=== PATIENT | female | born 1950 | race Caucasian/White ===

== ENCOUNTER → 2022-03-19 10:30 | Outpatient (CLI) | payer MEDICARE, OTHER, SELFPAY ==
[2022-03-19 11:16] LABS: COVID19 -Nasal RAPID Negative (Negative)
== END ==
PROVIDERS: Visit Provider Surgery
DX: Z20.822 Contact with and (suspected) exposure to COVID-19 (principal); Z01.812 Encounter for preprocedural laboratory examination
CPT/HCPCS: 87635; C9803

== ENCOUNTER 2022-03-22 08:13 | Day surgery (SDC) | payer MEDICARE, OTHER, SELFPAY ==
--- NOTE | 2022-03-22 | PATH_ITS ---
[facility] Accession Number: [id number] . 01 Material submitted: . colon - DESCENDING COLON . 01 Diagnosis: Descending Colon Polyp, Biopsy: Tubular adenoma. MRV 03/25/2022 1357 Local . 01 Electronically signed: . Michelle Joe MD, Pathologist NPI- [id number] . 01 Gross description: . The specimen is received in formalin, labeled with the patient's name and descending colon, and consists of multiple zuñiga to brown soft tissue fragments ranging from 0.1 cm to 0.4 cm in greatest dimension. Submitted entirely in cassette A1. ([id number]) /FRR 03/25/2022 0324 Local . 01 Pathologist provided ICD-10: D12.4 . 01 CPT . 042967 Specimen Comment: A courtesy copy of this report has been sent to [phone] Performed at: 01 [facility] [address] [place] [address] [id number] MD Rell Henley MD Phone: [phone]
[2022-03-22 08:41] VITALS: BP 146/89; PULSE 96; RESP 16; TEMP 36.8; O2SAT 98; BMI 37.4
[2022-03-22] MEDS: SODIUM CHLORIDE 0.9% 1,000 ML 84 ML IV (09:05)
--- NOTE | 2022-03-22 09:08 | PM.HP.1 ---
History of Present Illness History of Present Illness Date Patient Seen: 03/22/22 Time Patient Seen: 09:08 Chief complaint: Colonoscopy Narrative: Family history of colon cancer in her dad. Recent positive Cologuard. Patient History Family & Social History Social History: household members spouse Tobacco & Substance use: Smoking Status Never smoker alcohol intake frequency a few times a month Substance Use Type does not use Meds Home Medications and Allergies Home Medications Medication Instructions Recorded Confirmed Type aspirin 81 mg tablet,delayed 81 mg 03/22/22 History release clobetasol 0.05 % topical ointment 1 topical PRN psoriasis 03/22/22 History guselkumab 100 mg/mL subcutaneous 0 mg SUBCUT 03/22/22 History auto-injector (Tremfya) hydrochlorothiazide 12.5 mg tablet 12.5 mg 03/22/22 History lisinopril 20 mg tablet 20 mg 03/22/22 History meloxicam 15 mg tablet 15 mg 03/22/22 History simvastatin 10 mg tablet 10 mg 03/22/22 History Allergies Allergy/AdvReac Type Severity Reaction Status Date / Time No Known Drug Allergies Allergy Verified 03/22/22 08:37 Review of Systems Review of Systems ROS: Yes All systems reviewed with the patient and are negative except as otherwise documented Exam Vital Signs (past 8 hours): - 03/22/22 08:41 Temperature 98.3 F Pulse Rate 96 H Respiratory Rate 16 Blood Pressure 146/89 H Pulse Oximetry 98 Oxygen Delivery Method Room Air Oxygen Delivery Method Room Air Const General: cooperative HENMT Head: normal to inspection Eyes General: appearance normal, both eyes and all related structures Neck Neck: normal visual inspection Chest Chest: normal inspection of the chest Resp Effort & Inspection: normal respiratory effort Cardio Rate: regular rate GI Inspection: normal to inspection Skin General: no rashes or lesions noted Neuro General: patient alert and patient awake Extrem General: normal to inspection and no pedal edema Psych Appearance: grossly normal Assessment & Plan Assessment & Plan narrative: 71-year-old female with a family history of colon cancer and a personal history of a positive Cologuard. Colonoscopy is pursued today. Time Spent With Patient Critical Care time: I spent a total of [] minutes of critical care time on this patient's care today; this time is exclusive of procedural time.
--- NOTE | 2022-03-22 09:10 | PM.PREOP ---
Pre-operative Note COVID-19 COVID-19 status: Negative Result date/Date tested (Pos, Neg/Pending): 03/19/22 Criteria for continued procedure: Possibility delay results in more complex future surgery or treatment Interval Note History & Physical reviewed/Exam performed by Physician: Yes Changes to H&P: No ASA Class (for procedural sedation): II
--- NOTE | 2022-03-22 10:15 | P.OP.COLON_ITS ---
Operative Date/Time/Diagnoses Date of procedure: 03/22/22 Time of procedure: 10:15 Pre-op diagnosis: Family history of colon cancer. Positive Cologuard. Post-op diagnosis: same Procedure & Clinicians Study performed: Colonoscopy with hot snare polypectomy Same procedure as scheduled: Yes Indications: Family history of colon cancer. Positive Cologuard. Surgeon: Gino Avendaño Procedure Notes SCOAP/Timeout: Done Procedure in detail: After the risks and benefits were explained, written and verbal informed consent was obtained. The patient was brought into the procedure room and placed into the left lateral decubitus position. Please see nurse hardwood floor sander notes for sedation details. Digital rectal examination was accomplished. The scope was introduced into the patient and advanced under direct visualization to the cecum as identified by the appendiceal orifice and ileocecal valve. The scope was slowly withdrawn to carefully examine the mucosa for any defects or lesions. Comprehensive imaging was accomplished throughout the rectum including the dentate line. The colon was decompressed, the scope was then removed from the patient who tolerated the procedure well. Adult colonoscope Bowel prep adequate Scope withdrawal time: 12 minutes Sedation minutes: 21 Complications: none Impression: In the proximal descending colon there was a sessile 6 mm polyp removed with hot snare. No additional pathology was appreciated throughout. The terminal ileum was normal in appearance. Grade 2 internal hemorrhoids were noted. Endoscopic diagnosis 1. Colon polyp 2. Grade 2 hemorrhoids Post-procedure Plan for aftercare: 1. Await histopathology. 2. Repeat colonoscopy 5 years. Disposition: PACU
[2022-03-22 10:18] VITALS: BP 119/57; PULSE 96; RESP 12; TEMP 36.6
[2022-03-22 10:23] VITALS: BP 124/77; PULSE 75; RESP 13; O2SAT 97
[2022-03-22 10:29] VITALS: BP 134/75; PULSE 75; RESP 23; O2SAT 98
[2022-03-22 10:30] VITALS: BP 130/72; PULSE 81; RESP 13; TEMP 36.7; O2SAT 99
[2022-03-22 10:47] VITALS: BP 133/79; PULSE 77; RESP 16; TEMP 35.9; O2SAT 99
== END 2022-03-22 10:55 | disposition home or self-care (01) ==
PROVIDERS: PCP Family Medicine; Referring Provider Internal Medicine Gastroenterology; Visit Provider Internal Medicine Gastroenterology
PROC: 0DJD8ZZ Inspection of Lower Intestinal Tract, Via Natural or Artificial Opening Endoscopic (ICD-10-PCS; CPT 45378; principal; 2022-03-22 09:30)
DX: R19.5 Other fecal abnormalities (principal); Z80.0 Family history of malignant neoplasm of digestive organs; K64.1 Second degree hemorrhoids; D12.4 Benign neoplasm of descending colon
CPT/HCPCS: 45385; J2405; J2704

== ENCOUNTER → 2023-05-30 06:33 | Outpatient (CLI) | payer MEDICARE, OTHER, SELFPAY ==
--- NOTE | 2023-05-30 06:34 | DI.ECHO.S_ITS ---
[facility] +---------+ : : [address] : : : : [id number] : : : : Phone: [phone]+ Echocardiogram Report + + :Name: DAMIÁN ASHER Study Date: 05/30/2023 Height: 65 in : :[facility] ReadingLocation: Weight: 225 lb : : Gender: Female BSA: 2.1 m2 : :: 1950 Age: 73 yrs BP: 173/97 mmHg: :Reason For Study: edema, and chest heaviness : : Performed By: Camille Corona : :Referring: ELENA MANUEL M : + + Interpretation Summary 1) Normal left ventricular thickness, size, wall motion, and systolic function (EF 55-60%). 2) Normal right ventricular size and function. 3) There is mild to moderate aortic stenosis (valve area 1.3cm2, mean gradient 17mmHg, severity ratio 0.45). 4) No prior Echo available for comparison. Procedure: A two-dimensional transthoracic echocardiogram with color flow and Doppler was performed. The study quality was technically adequate. There is no prior echocardiogram noted for this patient. The patient was in normal sinus rhythm during the exam. The heart rate ranged between 60-74 bpm during the study. Left Ventricle: Proximal septal thickening is noted. The estimated left ventricular end diastolic volume is 47 ml. The left ventricle is normal in size and wall thickness. There is no thrombus. There is no ventricular septal defect visualized. The ejection fraction is estimated to be 55-60%. There are no focal wall motion abnormalities. Diastolic parameters suggest a pseudonormalization pattern, consistent with probable elevated filling pressures. Right Ventricle: The right ventricle is normal in size and function. Atria: The left atrium is moderately dilated. The right atrium is normal in size. There is no Doppler evidence for an interatrial shunt. Mitral Valve: There is mild mitral annular calcification. The mitral valve leaflets appear mildly thickened, but open well. The mitral valve leaflets are mildly calcified. There is no mitral valve stenosis. There is trace mitral regurgitation. Aortic Valve: The aortic valve is mildly calcified. There is mild to moderate aortic stenosis. The peak aortic velocity is 2.86 m/sec. The aortic valve mean gradient is 17 mmHg. No aortic regurgitation is present. Tricuspid Valve: The tricuspid valve leaflets are thin and pliable. There is a trace or physiologic amount of tricuspid regurgitation. The right ventricular systolic pressure is estimated to be at least 19 mmHg based on an estimated right atrial pressure of 3 mm Hg. Pulmonic Valve: The pulmonic valve is not well seen, but is grossly normal. There is no pulmonic valvular regurgitation. Great Vessels: The aortic root is normal size. The ascending aorta could not be visualized. The aortic arch could not be visualized. The IVC is of normal diameter and collapses greater than 50% with a sniff. This suggests a low right atrial pressure of 3 mm Hg. Pericardium/ Pleura There is no pericardial effusion. There is an anterior echo-free space consistent with a fat pad. There is no pleural effusion. MMode/2D Measurements & Calculations LVIDd: 4.5 cm LVOT diam: 1.9 cm LVIDs: 3.0 cm Ao root diam: 2.9 cm FS: 31.9 % IVSd: 1.1 cm LVPWd: 0.97 cm LV kaur. diameter/BSA (cm/m^2): 2.1 LV sys. diameter/BSA (cm/m^2): 1.5 LA A2 area: 26.7 cm2 RA long axis: 5.3 cm LA A4 area: 16.0 cm2 RA area: 13.8 cm2 LA length (vol): 4.9 cm RA vol: 30.3 ml LA vol: 73.9 ml RA : 14.6 ml/m2 LA vol index: 35.5 ml/m2 IVC diam: 1.2 cm RVD1 (basal): 2.8 cm TAPSE: 2.2 cm Doppler Measurements & Calculations Ao V2 max: 285.9 cm/sec LVOT Max Jose Miguel: 129.9 cm/sec Ao V2 mean: 195.4 cm/sec LV V1 max P.8 mmHg Ao max P.7 mmHg LV V1 VTI: 28.5 cm Ao mean P.0 mmHg ASHLEY(I,D): 1.3 cm2 Ao V2 VTI: 63.9 cm ASHLEY(V,D): 1.3 cm2 sev ratio: 0.45 ASHLEY indexed to BSA (cm^2/m^2): 0.63 MV E max jose miguel: 119.9 cm/sec TR max jose miguel: 205.4 cm/sec MV A max jose miguel: 155.4 cm/sec TR max P.9 mmHg MV E/A: 0.77 PA V2 max: 100.3 cm/sec Med Peak E' Jose Miguel: 4.9 cm/sec PA V2 mean: 71.4 cm/sec E/E' med: 24.7 PA mean P.3 mmHg Lat Peak E' Jose Miguel: 6.1 cm/sec PA pr(Accel): 5.4 mmHg E/E' lat: 19.7 E/e' average: 22.2 MV dec time: 0.18 sec SV(LVOT): 83.2 ml Reading Physician:02:52 PM
== END ==
PROVIDERS: PCP Family Medicine; Referring Provider Family Medicine; Visit Provider Family Medicine
DX: I34.81 Nonrheumatic mitral (valve) annulus calcification (principal); I35.0 Nonrheumatic aortic (valve) stenosis; R06.00 Dyspnea, unspecified
CPT/HCPCS: 93306

== ENCOUNTER → 2023-06-22 08:42 | Outpatient (CLI) | payer MEDICARE, OTHER, SELFPAY ==
--- NOTE | 2023-06-22 08:44 | DI.NM.S_ITS ---
PROCEDURE: NM IVONE PERF SPECT R&S PHARM Rest and pharmacological stress myocardial perfusion SPECT with gated imaging and ejection fraction RADIOPHARMACEUTICAL: 25.7 mCi Tc-99m tetrafosmin IV at rest and 25 mCi Tc-99m tetrafosmin IV at peak effect of pharmacological stress. [id number] was performed. INDICATIONS: Dyspnea, unspecified TECHNIQUE: Radiopharmaceutical was injected at peak stress test, and also at rest. SPECT images were obtained. SPECT myocardial perfusion images were displayed in short axis, horizontal long axis, and vertical long axis views. Gated images were reviewed using Jammin Java software. COMPARISON: None. CARDIAC STRESS: A pharmacologic stress test was performed under the supervision of an attending staff, using an infusion of lexiscan 0.4mg IV X1. Hemodynamic data: There is normal blood pressure and heart rate response to pharmacologic stress. Symptoms: The patient denied anginal chest pain. Aminophylline: none EKG: No diagnostic changes of ischemia; no ectopy. FINDINGS: Raw data: There is good myocardial uptake of radiotracer. No significant motion artifacts. Left ventricle function: Gated images demonstrate normal left ventricular wall thickening. No segmental wall motion abnormalities. No transient ischemic dilation; TID is 0.84 (normal less than 1.3). Left ventricle resting end diastolic volume is 85mL. Left ventricle stress ejection fraction is 82%; normal range is above 45%. Myocardial perfusion: There is normal distribution of activity in the right and left ventricular myocardium. No fixed or reversible perfusion defects based on stress prone images. IMPRESSION: Low risk, normal pharm nuclear stress test with normal wall motion and normal systolic function (EF post stress 82%). Dictated by: Khurram Crystal MD on 06/24/2023 at 16:35 Approved by: Khurram Crystal MD on 06/24/2023 at 16:37
== END ==
LOC: NUCM 08:43
PROVIDERS: PCP Family Medicine; Referring Provider Internal Medicine Cardiovascular Disease; Visit Provider Internal Medicine Cardiovascular Disease
DX: R06.00 Dyspnea, unspecified (principal); R06.02 Shortness of breath; I10 Essential (primary) hypertension; R06.09 Other forms of dyspnea; I51.89 Other ill-defined heart diseases
CPT/HCPCS: 78452; 93017; A9502; J2785

== ENCOUNTER 2024-02-28 17:02 | Emergency (ER) | payer MEDICARE, OTHER, SELFPAY ==
[2024-02-28] VITALS (7 sets, daily range): BP systolic 166–237; BP diastolic 74–106; PULSE 91–106; RESP 16–26; TEMP 36.6–36.7; O2SAT 96–97; BMI 38.4
--- NOTE | 2024-02-28 17:22 | DI.RAD.S_ITS ---
PROCEDURE: XR CHEST 1V INDICATIONS: chest pain TECHNIQUE: One view of the chest was acquired. COMPARISON: None available at the time of this dictation. FINDINGS: Surgical changes and devices: None. Lungs and pleura: Low lung volumes are noted. This causes a crowded appearance to the lung markings and limits evaluation. Mild generalized interstitial prominence can be seen. Mediastinum: Mediastinal contours appear normal. Heart size is at the upper limits of normal. Bones and chest wall: No suspicious bony lesions. Mild dextroconvex scoliotic curvature is seen. Age-appropriate bony degenerative changes are seen. Overlying soft tissues appear unremarkable. IMPRESSION: Low lung volumes with mild interstitial prominence. Differential diagnosis includes artifact versus mild pulmonary edema. The heart size is at the upper limits of normal. If clinically appropriate, a short-term followup chest series (with PA and lateral views) performed in deep inspiration is suggested for further evaluation. Dictated by: Law Zee M.D. on 02/28/2024 at 16:59 Approved by: Law Zee M.D. on 02/28/2024 at 16:59
[2024-02-28 17:33] LABS: Add Manual Diff / Slide Review NO; Basophils Absolute Auto 100 /uL (0-100); Basophils Percent Auto 1.5 % (0-2); Eosinophils Absolute Auto 100 /uL (0-450); Eosinophils Percent Auto 1.4 % (2-4); Hematocrit 36.6 % (36-46); Lymphocytes Absolute Auto 1200 /uL (1100-4500); Lymphocytes Percent Auto 14.2 % (25-40); Mean Corpuscular HGB Conc 32.9 % (30-36); Mean Corpuscular Volume 81.9 fL (80-100); Monocytes Absolute Auto 500 /uL (0-900); Monocytes Percent Auto 5.7 % (3-14); Neutrophils Absolute Auto 6500 /uL (1500-7000); Neutrophils Percent Auto 77.2 % (50-75); Platelet Count 261 X10^3/uL (150-400); Red Blood Cell Count 4.47 X10^6/uL (4.0-5.2); Red Cell Distribution Width 16.9 % (11.6-14.8); White Blood Cell Count 8.4 X10^3/uL (4.5-11.0)
--- NOTE | 2024-02-28 17:38 | EKG_ITS ---
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
[2024-02-28 17:40] LABS: Prothrombin Time 11.2 SECONDS (9.4-12.5)
[2024-02-28 17:42] LABS: PTT Partial Thromboplastin Tim 30 SECONDS (25.1-36.5)
[2024-02-28 17:44] LABS: Alanine Aminotransferase 24 IU/L (<35); Albumin 4.3 g/dL (3.5-5.0); Albumin Globulin Ratio 1.3 (1.0-2.8); Alkaline Phosphatase 115 U/L (38-126); Aspartate Aminotransferase 23 IU/L (14-36); BUN Creatinine Ratio 22.9 (6-22); Bilirubin Total 0.5 mg/dL (0.2-1.3); Blood Urea Nitrogen 19 mg/dL (7-17); Calcium 9.1 mg/dL (8.4-10.2); Carbon Dioxide 24 mmol/L (22-32); Chloride 105 mmol/L (98-107); Creatine Kinase 42 U/L (30-135); Estimated Glomerular Filt Rate > 60 mL/min (>60); Globulin 3.2 g/dL (1.7-4.1); Glucose 150 mg/dL (80-110); HEMOLYSIS < 15 (0-50); Lipase 67 U/L (23-300); Magnesium 1.9 mg/dL (1.6-2.3); Potassium 3.7 mmol/L (3.4-5.1); Sodium 138 mmol/L (137-145); Total Protein 7.5 g/dL (6.3-8.2)
[2024-02-28] MEDS: ASPIRIN 81 MG CHEW TAB 324 MG PO (17:56)
[2024-02-28 17:57] LABS: NT-proBNP (BNP-Adult 18+) 400 pg/mL (<125); Troponin I < 0.012 ng/mL (0.01-0.034)
[2024-02-28 20:17] LABS: Troponin I < 0.012 ng/mL (0.01-0.034)
--- NOTE | 2024-02-28 21:42 | ED_ITS ---
HPI - General Adult General Chief complaint: Hypertension Stated complaint: Dizzy, High BP Time Seen by Provider: 02/28/24 21:17 Source: patient, RN notes reviewed and old records reviewed Mode of arrival: Wheelchair Limitations: no limitations History of Present Illness HPI narrative: 73-year-old female with a history of hypertension, dyslipidemia, psoriasis presents with complaint of hypertension, dizziness status post knee replacement weeks ago. Patient notes blood pressure has been elevated and had attempted increasing lisinopril and Lasix but without improvement of symptoms. Patient states she has been checking her blood pressure recently because she felt dizzy. She denies chest pain or shortness of breath, no syncope, no nausea or vomiting no other GI or urinary symptoms. No swelling in extremities. Her physician had her adjusting her medications and had her decrease her Lasix to half dose for about a week and then returned to normal this Tuesday. She has been taking her lisinopril regularly until Tuesday when she was told to take 40 mg instead of 20, patient took an additional 40 mg today has continued with her Lasix at its full dose. She has been checking her blood pressure multiple times appears to range between 150s and 160s but has had some elevated diastolic pressures. Home medications include aspirin 81 mg daily, lisinopril 20 mg daily, Lasix 10 mg, simvastatin and meloxicam. She has had prior knee replacement 10 weeks ago, no history of cardiac stents or interventions. No known drug allergies. No tobacco, alcohol or recreational drugs. She was in contact with her primary care physician reviewed her blood pressures and was told to come to the ED for evaluation. Related Data Home Medications Medication Instructions Recorded Confirmed aspirin 81 mg tablet,delayed 81 mg 03/22/22 release clobetasol 0.05 % topical ointment 1 topical PRN psoriasis 03/22/22 guselkumab 100 mg/mL subcutaneous 0 mg SUBCUT 03/22/22 auto-injector (Tremfya) hydrochlorothiazide 12.5 mg tablet 12.5 mg 03/22/22 lisinopril 20 mg tablet 20 mg 03/22/22 meloxicam 15 mg tablet 15 mg 03/22/22 simvastatin 10 mg tablet 10 mg 03/22/22 Allergies Allergy/AdvReac Type Severity Reaction Status Date / Time No Known Drug Allergies Allergy Verified 02/28/24 17:21 Review of Systems Review of Systems ROS Unobtainable: All systems reviewed & are unremarkable except as noted in HPI and below Patient History Social History household members: spouse Smoking Status: Never smoker Smoking Status: Never smoker alcohol intake frequency: a few times a month Substance Use Type: does not use Exam Narrative Exam Narrative: GENERAL: Alert and oriented x three, mild distress HEENT: Head normocephalic, atraumatic, EOMI, pupils reactive, face symmetric, moist mucous membranes NECK: Supple, full range of motion CARDIOVASCULAR: Regular rate and rhythm without murmurs, rubs or gallops. No JVD, no edema bilateral lower extremities. RESPIRATORY: Breath sounds equal bilaterally, no wheezes rales or rhonchi. No tachypnea or accessory muscle use ABDOMEN: Soft, nontender. Normoactive bowel sounds all 4 quadrants. No guarding or rebound, rigidity, no mass : No CVA tenderness EXTREMITIES: Normal range of motion, no clubbing or edema. Neurovascularly intact NEUROLOGICAL: Cranial nerves II through XII grossly intact. Moving all extremities SKIN: Warm, dry, no petechiae, no rashes or lesions. Initial Vital Signs Initial Vital Signs: Vital Signs Temperature 98.1 F 02/28/24 17:17 Pulse Rate 106 H 02/28/24 17:17 Respiratory Rate 16 02/28/24 17:17 Blood Pressure 237/106 H 02/28/24 17:17 Pulse Oximetry 97 02/28/24 17:17 Oxygen Delivery Method Room Air 02/28/24 17:17 Course Orders Ordered: ED Orders 02/28/24 19:45 Trop I [Troponin I] Stat Discontinued Medications Aspirin (Aspirin 81 Mg Chew Tab) 324 mg PO NOW ONE Stop: 02/28/24 17:23 Last Admin: 02/28/24 17:56 Dose: 324 mg Documented By: MS Vital Signs Vital signs: Vital Signs - 8 hr 02/28/24 21:30 02/28/24 21:40 02/28/24 22:00 Temperature Pulse Rate 92 H 92 H 92 H Respiratory Rate 17 17 20 Blood Pressure 166/75 H 166/74 H Pulse Oximetry 97 96 96 Oxygen Delivery Method 02/28/24 22:01 02/28/24 22:01 Temperature 97.8 F Pulse Rate 93 H Respiratory Rate 20 Blood Pressure 169/85 H Pulse Oximetry 96 Oxygen Delivery Method Room Air Medical Decision Making Lab Data 02/28/24 17:24 02/28/24 17:24 Labs: Lab Results 02/28/24 02/28/24 Range/Units 17:24 19:45 WBC 8.4 (4.5-11.0) X10^3/uL RBC 4.47 (4.0-5.2) X10^6/uL Hgb 12.0 (12.0-16.0) g/dL Hct 36.6 (36-46) % MCV 81.9 (80-100) fL MCH 27.0 (26-34) PG MCHC 32.9 (30-36) % RDW 16.9 H (11.6-14.8) % Plt Count 261 (150-400) X10^3/uL Neut % (Auto) 77.2 H (50-75) % Lymph % (Auto) 14.2 L (25-40) % Bullitt % (Auto) 5.7 (3-14) % Eos % (Auto) 1.4 L (2-4) % Baso % (Auto) 1.5 (0-2) % Neut # (Auto) 6500 (6312-7855) /uL Lymph # (Auto) 1200 (0355-0551) /uL Bullitt # (Auto) 500 (0-900) /uL Eos # (Auto) 100 (0-450) /uL Baso # (Auto) 100 (0-100) /uL PT 11.2 (9.4-12.5) SECONDS INR 1.0 (0.9-1.3) APTT 30 (25.1-36.5) SECONDS Sodium 138 (137-145) mmol/L Potassium 3.7 (3.4-5.1) mmol/L Chloride 105 (98-107) mmol/L Carbon Dioxide 24 (22-32) mmol/L BUN 19 H (7-17) mg/dL Creatinine 0.83 (0.52-1.04) mg/dL Estimated GFR > 60 (>60) mL/min BUN/Creatinine Ratio 22.9 H (6-22) Glucose 150 H (80-110) mg/dL Calcium 9.1 (8.4-10.2) mg/dL Magnesium 1.9 (1.6-2.3) mg/dL Total Bilirubin 0.5 (0.2-1.3) mg/dL AST 23 (14-36) IU/L ALT 24 (<35) IU/L Alkaline Phosphatase 115 (38-126) U/L Total Creatine Kinase 42 (30-135) U/L Troponin I < 0.012 < 0.012 (0.01-0.034) ng/mL NT-Pro-B Natriuret Pep 400 H (<125) pg/mL Total Protein 7.5 (6.3-8.2) g/dL Albumin 4.3 (3.5-5.0) g/dL Globulin 3.2 (1.7-4.1) g/dL Albumin/Globulin Ratio 1.3 (1.0-2.8) Lipase 67 (23-300) U/L ECG Data Attestation: I personally reviewed and interpreted this ECG as follows: Prior ECG tracings: not available for review Interpretation: Normal sinus rhythm rate of 95 PA 146 QRS is 76 QTC of 475, no acute ST elevation or depression noted. MDM Narrative Medical decision making narrative: 73-year-old female who describes some dizziness no falls or instability reported, blood pressure has been ranging between 140s and 160s based on her home checks she had about 7 or 8 checks today and over the last several days. Did have some adjustments and had had her Lasix decreased in the last week and just returned to her normal dose on Tuesday. They did have her increase her lisinopril from 20-40 mg on Tuesday and today on Tuesday. She has follow up this with the primary care White count 8.4 hemoglobin of 12 hematocrit of 36 platelets of 261. Coags are negative, electrolytes are appropriate BUN 19 creatinine 0.83, glucose is 150 LFTs are negative troponins less than 0.12 with a repeat troponin of less than 0.12 and a BNP of 400. Chest x-ray shows low lung volumes with mild interstitial prominence differential diagnosis includes artifact versus mild pulmonary edema heart size is upper limits of normal. EKG of 95, no priors for comparison no acute ST changes appreciated. Old records show patient had a myocardial perfusion stress test on May of 2023 for shortness of breath had an EF of 55-60% with grade 2 diastolic dysfunction parameters, moderate left atrial enlargement mild aortic stenosis peak velocity 2.9 m/sec, hypertension and obesity this was followed by perfusion nuclear med scan that was found to be low risk with normal farm nuclear stress test with normal wall motion and normal systolic function. No acute end-organ disease is appreciated, patient has not had any shortness of breath reviewed her findings from today however continue with 40 mg of lisinopril daily until she sees her physician this . Discharge Plan Departure Patient Disposition: Home Clinical Impression: Hypertension Activity Restrictions/Additional Instructions: Follow up with your physician at your appointment on . Would recommend you continue lisinopril 40 mg until you see your physician at her appointment on , continue all your other medications your regular dosage. You can touch base with your physician if needed for any other medication adjustments in the interim. Please return for severe headaches, new chest pain, new shortness of breath, lightheadedness or passing out, new swelling in extremities or other new or concerning changes. Prescriptions: No Action aspirin 81 mg tablet,delayed release (DR/EC) 81 mg hydrochlorothiazide 12.5 mg tablet 12.5 mg lisinopril 20 mg tablet 20 mg simvastatin 10 mg tablet 10 mg meloxicam 15 mg tablet 15 mg Tremfya 100 mg/mL auto-injector 0 mg SUBCUT clobetasol 0.05 % ointment 1 TOPICAL PRN (Reason: psoriasis) Referrals: Parisa Rivas DO [Primary Care Provider] - Stand Alone Forms: Patient Portal/API
== END 2024-02-28 22:19 | disposition home or self-care (01) ==
PROVIDERS: Emergency Medicine; Emergency Provider Emergency Medicine; PCP Family Medicine
DX: I10 Essential (primary) hypertension (principal); E66.9 Obesity, unspecified; I35.0 Nonrheumatic aortic (valve) stenosis; Z68.38 Body mass index [BMI] 38.0-38.9, adult
CPT/HCPCS: 36415; 71045; 80053; 82550; 83690; 83735; 83880; 84484; 85025; 85610; 85730; 93005; 93010; 99284

== ENCOUNTER → 2024-10-29 10:35 | Outpatient (CLI) | payer MEDICARE, OTHER, SELFPAY ==
--- NOTE | 2024-10-29 10:37 | DI.RAD.S_ITS ---
PROCEDURE: XR DEXA AXIAL SKELETON INDICATIONS: LUMBOSACRAL RADICULOPATHY/ASYMPTOMATIC MENOPAUSAL COMPARISON: None. FINDINGS: Lumbar Spine: Bone mineral density 1.146 g/cm2, T score 0.9. Left Femoral Neck: Bone mineral density 0.679 g/cm2, T score -1.5. Left Hip: Bone mineral density 0.987 g/cm2, T score 0.4. Fracture Risk Calculation (when applicable): 10-year fracture risk of a major osteoporotic fracture 15 percent and of a hip fracture 3.0 percent. (T score greater or equal to -1.0 to: NORMAL) (T score from -1.1 to -2.4: OSTEOPENIA) (T score less than or equal to -2.5: OSTEOPOROSIS) IMPRESSION: Osteopenia--- recommend repeat DEXA in 2-3 years for reassessment. Follow-up guidelines as follows: Osteoporosis: Consider a repeat DEXA and Vertebral Fracture Assessment (VFA) exam in 2 years or sooner if medically necessary, to reassess this patient's status. Osteopenia: Consider a repeat DEXA in 2-3 years to reassess this patient's status, or if there is a new clinical indication. Normal: Consider a repeat DEXA in 5 years or sooner, or if there is a new clinical indication. All treatment decisions require clinical judgment and consideration of individual patient factors, including patient preferences, comorbidities, previous drug use, risk factors not captured in the FRAX model (e.g., frailty, falls, vitamin D deficiency, increased bone turnover, interval significant decline in bone density ) and possible under- or over-estimation of fracture risk by FRAX. In addition, the NOF Guide recommends that FDA-approved medical therapies be considered in postmenopausal women and men age >= 50 years with a: * Hip or vertebral (clinical or morphometric) fracture * T-score of <=-2.5 at the spine or hip * Ten-year fracture probability by FRAX of >= 3% for hip fracture or >=20% for major osteoporotic fracture. Dictated by: Erik Ojeda M.D. on 10/29/2024 at 20:11 Approved by: Erik Ojeda M.D. on 10/29/2024 at 20:14
--- NOTE | 2024-10-29 10:37 | DI.MRI.S_ITS ---
PROCEDURE: MR LUMBAR SPINE WO CON INDICATIONS: LUMBOSACRAL RADICULOPATHY/ASYMPTOMATIC MENOPAUSAL TECHNIQUE: Noncontrast sagittal T1 spin echo and T2 fast echo, sagittal STIR, and T2 fast spin echo through the lumbar spine. In cases with scoliosis, additional coronal T2 fast spin echo may be performed. COMPARISON: [facility], CR, XR LUMBAR SPINE WITH OBLIQUES, 09/01/2022, 16:09. FINDINGS: Image quality: Diagnostic Alignment and Curvature: There is moderate levoscoliosis of the upper lumbar spine with reciprocal dextroscoliosis near the lumbosacral junction. Bone Marrow: Marrow is of normal overall signal. No acute vertebral body compression fractures. Spinal Cord: Conus medullaris terminates at the L1 level. Visualized cord demonstrates normal signal and size. Paraspinous Soft Tissues: No paravertebral masses. T12-L1: Moderate right and mild left bilateral facet arthropathy and ligamentum flavum thickening. Disc space loss. Degenerative endplate changes. Small symmetric disc bulge. No significant spinal canal stenosis. No significant left neuroforaminal stenosis. Moderate right neuroforaminal stenosis. L1-L2: Disc space loss. Degenerative endplate changes and prominent right lateral endplate osteophyte. Disc desiccation. Moderate right worse than left bilateral facet arthropathy. Eccentric to the right disc bulge. No significant spinal canal stenosis. Minimal left and moderate right bilateral neuroforaminal stenosis. L2-L3: Disc space loss. Degenerative endplate changes. Moderate disc bulge. Moderate-severe bilateral facet arthropathy and ligamentum flavum hypertrophy. Moderate left and moderate-severe right bilateral neuroforaminal stenosis. Minimal spinal canal stenosis. L3-L4: Moderate disc space loss. Moderate degenerative endplate changes. Endplate osteophyte formation. Severe left and moderate right bilateral facet arthropathy with ligamentum flavum hypertrophy. Prominent left lateral endplate osteophyte. Prominent eccentric to the left disc bulge. There is mild right and severe left bilateral neuroforaminal stenosis with minimal spinal canal stenosis. L4-L5: Moderate disc space loss and degenerative endplate changes. Endplate osteophyte formation. Moderate disc bulge. Moderate-severe bilateral facet arthropathy more pronounced on the left. Mild-moderate spinal canal stenosis. Mild-moderate right and severe left bilateral neuroforaminal stenosis. L5-S1: Moderate-severe bilateral facet arthropathy more pronounced on the left. Small disc bulge. Mild degenerative endplate changes. Mild right and mild-moderate left bilateral neuroforaminal stenosis. Mild spinal canal stenosis. IMPRESSION: Lumbar spine without acute abnormalities. Moderate S-shaped scoliosis of the thoracolumbar spine with advanced multilevel, multifactorial lumbar spondylosis as described above by vertebral body level. No high-grade spinal canal stenosis although there are variable degrees of high-grade bilateral neuroforaminal stenosis as described above. Dictated by: John Tenorio M.D. on 10/29/2024 at 20:57 Approved by: John Tenorio M.D. on 10/29/2024 at 21:14
== END ==
PROVIDERS: PCP Family Medicine; Referring Provider Family Medicine; Visit Provider Family Medicine
DX: M47.26 Other spondylosis with radiculopathy, lumbar region (principal); M47.27 Other spondylosis with radiculopathy, lumbosacral region; M85.89 Other specified disorders of bone density and structure, multiple sites; M85.88 Other specified disorders of bone density and structure, other site; Z78.0 Asymptomatic menopausal state; M41.9 Scoliosis, unspecified; M48.061 Spinal stenosis, lumbar region without neurogenic claudication; M48.07 Spinal stenosis, lumbosacral region
CPT/HCPCS: 72148; 77080